=== PATIENT | male | born 1985 | race Caucasian/White ===

== ENCOUNTER 2022-11-27 13:59 | Emergency (ER) | payer OTHER, SELFPAY ==
[2022-11-27 14:15] VITALS: BP 146/92; PULSE 92; RESP 16; TEMP 36.4; O2SAT 100
[2022-11-27 14:16] VITALS: BP 146/92; PULSE 92; RESP 16; TEMP 36.4; O2SAT 100
--- NOTE | 2022-11-27 14:22 | ED.EAR ---
HPI - Ear Problem General Chief complaint: Ear Stated complaint: Pain in left ear Time Seen by Provider: 11/27/22 14:20 Source: patient Mode of arrival: ambulatory Limitations: no limitations History of Present Illness HPI Narrative: Ricardo is a 37-year-old male patient presenting to the clinic today with complaints of left ear pain. He reports that he has had left ear pain for the last few days. No known fever or chills. Denies recent swimming Related Data Allergies Allergy/AdvReac Type Severity Reaction Status Date / Time amoxicillin [From Amoxil] Allergy Unknown Verified 11/27/22 14:16 Review of Systems Review of Systems: Pertinent positives per HPI. Patient denies any fever, chills, rash, headache, visual changes, dizziness, cough, runny nose, sore throat, shortness of breath, chest pain, palpitations, nausea, vomiting, diarrhea, constipation, abdominal pain, or any urinary issues. PMFSH Social History Social History Smoking status: Never smoker Alcohol intake: current Comments At the time of my signature, I reviewed and agree with the nursing past medical, surgical, social, and family history. There is no relevant family history pertinent to the patient complaint. Exam Narrative: General: Well-developed, well nourished, in no apparent distress Head: Normocephalic, atraumatic Eyes: Pupils equally round and reactive to light bilaterally, EOM intact, sclera and conjunctive clear, no discharge, lids normal Ears: Left tMs intact and congested, right TM intact, clear, ear canals clear, no drainage, grossly hearing normal. Nose: Nares patent, no discharge, no inflammation, no sinus tenderness. Mouth: Oropharynx without lesions or masses, good dentition, MMM. Neck: Supple, trachea midline, no enlargement of anterior or posterior cervical nodes, no thyroid masses or goiter palpable. Cardio: Regular rate and rhythm, s1 and s2 normal, no murmur appreciated. Resp: Clear to auscultation bilaterally anteriorly and posteriorly, no rhonchi, rales, wheezing or rubs Course Course Emergency Course: Portions of this record may have been created with voice recognition software. Level of Care: Express Care Visit Vital Signs Vital signs: Vital Signs Temperature 36.4 C 11/27/22 14:15 Pulse Rate 92 11/27/22 14:15 Respiratory Rate 16 11/27/22 14:15 Blood Pressure 146/92 H 11/27/22 14:15 Pulse Oximetry 100 11/27/22 14:15 Oxygen Delivery Room Air 11/27/22 14:15 Temperature 36.4 C 11/27/22 14:16 Pulse Rate 92 11/27/22 14:16 Respiratory Rate 16 11/27/22 14:16 Blood Pressure 146/92 H 11/27/22 14:16 Pulse Oximetry 100 11/27/22 14:16 Oxygen Delivery Room Air 11/27/22 14:16 Vital signs reviewed Medical Decision Making MDM Narrative Medical decision making narrative: At the time of visit patient is resting comfortably on the exam table. Left ear TM mildly congested without sign of infection. Will trial prescription for some prednisone. Supportive measures were discussed with the patient he voiced understanding discharge instructions agrees to treatment plan. Differential Diagnosis Differential Diagnosis: Otitis media, otitis externa, eustachian tube dysfunction, cerumen impaction, upper respiratory infection Vital Signs Vital Signs: Vital Signs Temperature 36.4 C 11/27/22 14:15 Pulse Rate 92 11/27/22 14:15 Respiratory Rate 16 11/27/22 14:15 Blood Pressure 146/92 H 11/27/22 14:15 Pulse Oximetry 100 11/27/22 14:15 Oxygen Delivery Room Air 11/27/22 14:15 Temperature 36.4 C 11/27/22 14:16 Pulse Rate 92 11/27/22 14:16 Respiratory Rate 16 11/27/22 14:16 Blood Pressure 146/92 H 11/27/22 14:16 Pulse Oximetry 100 11/27/22 14:16 Oxygen Delivery Room Air 11/27/22 14:16 Discharge Plan Discharge Clinical Impression: Earache on left, Acute dysfunction of left
[2022-11-27 14:25] VITALS: BP 119/86
== END 2022-11-27 14:25 | disposition home or self-care (01) ==
PROVIDERS: Emergency Provider Nurse Practitioner Family; PCP Nurse Practitioner
DX: H92.02 Otalgia, left ear (principal); H69.92 Unspecified Eustachian tube disorder, left ear
CPT/HCPCS: 99213; G0463

== ENCOUNTER 2024-06-09 10:58 | Emergency (ER) | payer OTHER, SELFPAY ==
[2024-06-09 11:00] VITALS: BP 138/91; PULSE 94; RESP 16; TEMP 36.8; O2SAT 98
--- NOTE | 2024-06-09 11:05 | ED.WOUNDLAC ---
HPI - Wound/Laceration General Chief Complaint: Wound/Laceration Stated Complaint: head injury Time Seen by Provider: 06/09/24 11:00 History of Present Illness HPI narrative: Patient is a 39-year-old male who presents to the ER with a skin tear the top of head. 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 Patient is unsure when he received his last tetanus shot. He endorses a headache but denies need for pain medication here. Patient denies any pertinent medical history related to this ER visit. Related Data Allergies Allergy/AdvReac Type Severity Reaction Status Date / Time amoxicillin (From Amoxil) Allergy Unknown Verified 06/09/24 11:03 Review of Systems Review of Systems: All systems reviewed & are unremarkable except as noted in HPI and below PMFSH Social History Social History Smoking status: Never smoker Alcohol intake: current Exam Narrative: GENERAL: Well appearing, well-nourished, non-toxic, in no acute distress. HEAD: Normocephalic, small (approximately 1 cm) skin tear on the top of pt's head, bleeding controlled. NECK: Supple. No adenopathy, no masses. RESPIRATORY: Airway patent, respirations nonlabored. Clear to auscultation bilaterally, no rales, rhonchi, wheezing. CARDIOVASCULAR: Regular rate and rhythm without murmurs, rubs, or gallops. Peripheral pulses 2+ and equal bilaterally. ABDOMINAL: Soft, nontender, nondistended, no hepatosplenomegaly. Normoactive BS. MUSCULOSKELETAL: Moves all extremities. Strength/ROM intact without gross deformities. SKIN: Warm, dry, normal color. No rashes. NEURO: A&O X3. Speech clear. Cranial nerves II-XII grossly intact. Steady gait. No ataxic movements. PSYCHIATRIC: Appropriate mood and affect. Normal interaction. Course Vital Signs Vital signs: Vital Signs Temperature 36.8 C 06/09/24 11:00 Pulse Rate 94 06/09/24 11:00 Respiratory Rate 16 06/09/24 11:00 Blood Pressure 138/91 H 06/09/24 11:00 Pulse Oximetry 98 06/09/24 11:00 Oxygen Delivery Room Air 06/09/24 11:00 Temperature 36.8 C 06/09/24 11:00 Pulse Rate 94 06/09/24 11:00 Respiratory Rate 16 06/09/24 11:00 Blood Pressure 138/91 H 06/09/24 11:00 Pulse Oximetry 98 06/09/24 11:00 Oxygen Delivery Room Air 06/09/24 11:00 MDM - Wound/Laceration MDM Narrative Medical decision making narrative: Patient is a 39-year-old male who presents to the ER with a skin tear the top of head. 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 Patient is unsure when he received his last tetanus shot. He endorses a headache but denies need for pain medication here. Patient denies any pertinent medical history related to this ER visit. No labs necessary. No imaging necessary. Patient will be given a Tdap vaccination and discharged home. He may take Tylenol or ibuprofen at home for pain control. Patient verbalizes understanding and is in agreement with plan. All questions answered. Vital signs stable at time of discharge. Differential Diagnosis Differential diagnosis: Likely laceration, abrasion and avulsion of skin Discharge Plan Discharge Clinical Impression: Abrasion Patient Disposition: Home, Self-Care Condition: Stable Instructions: Antibiotic Form, Abrasion (ED) Additional Instructions: Please return to the ER with an worsening symptoms. Follow-up with primary care provider in the next 2-3 days. Take all medications as prescribed. Patient Language: [place] Prescriptions: No Action prednisone 20 mg tablet 40 mg PO DAILY 5 Days Qty: 10 0RF Follow-up/Referrals: Maddie,ROMANA Lin [Primary Care Provider] - Time of Disposition: 11:10
[2024-06-09] MEDS: TETANUS,DIPHTHERIA,AC PERTUSSIS ADULT (0.5 ML) BOOSTRIX IM (11:13)
[2024-06-09 11:47] VITALS: PULSE 78; RESP 18; TEMP 36.6; O2SAT 99
== END 2024-06-09 11:49 | disposition home or self-care (01) ==
LOC: ANHED 11:33
PROVIDERS: Emergency Provider Registered Nurse; PCP Nurse Practitioner
DX: S00.01XA Abrasion of scalp, initial encounter (principal); W22.09XA Striking against other stationary object, initial encounter; Z23 Encounter for immunization
CPT/HCPCS: 90471; 90715; 99282